=== PATIENT | male | born 1975 | race Caucasian/White ===

== ENCOUNTER 2017-03-13 15:33 | Emergency (ER) | payer SELFPAY ==
[~2017-03-13] VITALS: Ht 167.6 cm; Wt 77.0 kg
[2017-03-13] MEDS ORDERED: PROCHLORPERAZINE MALEATE 10MG TABLET PO ONE (16:15)
[2017-03-13 16:39] LABS: BASOPHILS % 0.5 % (0.0-2.0); EOSINOPHILS % 4.4 % (0.0-5.0); HEMOGLOBIN. 10.5 g/dL (14.0-18.0); LYMPHOCYTES % 9.8 % (20.0-50.0); MEAN CORPUSCULAR VOLUME 82.9 fL (80.0-94.0); MEAN PLATELET VOLUME 8.3 fl (7.4-10.4); MONOCYTES % 10.1 % (2.0-8.0); NEUTROPHILS % 75.2 % (40.0-76.0); PLATELET 310 x1000/uL (130-400); RED BLOOD CELL COUNT 3.61 mill/uL (4.7-6.1); RED CELL DISTRIBUTION WIDTH 13.5 % (11.6-14.6)
[2017-03-13 16:45] LABS: PROTHROMBIN TIME 10.7 sec
[2017-03-13] MEDS ORDERED: DIPHENHYDRAMINE 50MG/ML VIAL IV ONE (16:45)
[2017-03-13 16:55] LABS: CARBON DIOXIDE 27 mEq/L (21-32); CHLORIDE 91 mEq/L (98-107); TROPONIN I 0.03 ng/mL (0.00-0.04)
[2017-03-13] MEDS ORDERED: PROCHLORPERAZINE 10MG/2ML VIAL IV ONE (17:00)
[2017-03-13] MEDS ORDERED: SODIUM CHLORIDE 0.9% 1,000 ML IV ONE (19:53)
[2017-03-13] MEDS ORDERED: POTASSIUM CHLORIDE 10MEQ TABLET SR PO STA (20:00)
[2017-03-13 20:24] LABS: CLARITY URINE CLEAR (CLEAR); COLOR URINE YELLOW (YELLOW); GLUCOSE URINE NEGATIVE (NEGATIVE); KETONES URINE NEGATIVE (NEGATIVE); LEUKOCYTE ESTERASE URINE NEGATIVE (NEGATIVE); NITRITE URINE NEGATIVE (NEGATIVE); OCCULT BLOOD URINE NEGATIVE (NEGATIVE); PROTEIN URINE 1+ (NEGATIVE); SPECIFIC GRAVITY URINE 1.006 (1.005-1.030); UROBILINOGEN URINE 0.2 E.U./dL (0.2-1.0)
[2017-03-13 21:30] VITALS: BP 156/99
== END 2017-03-13 22:30 | disposition home or self-care (01) ==
LOC: ER 15:37
DX: R00.2 Palpitations (principal); E87.1 Hypo-osmolality and hyponatremia; E87.6 Hypokalemia; R51 Headache
CPT/HCPCS: 36415; 80053; 81001; 83880; 84484; 85025; 85610; 93005; 96361; 96374; 96375; 99285; J0780; J1200; J7030; Z7610

== ENCOUNTER 2018-08-21 16:35 | Inpatient (IN) | payer MEDICAID, OTHER ==
[~2018-08-21] VITALS: Ht 160 cm; Wt 69.9 kg
[~2018-08-21 16:35] MED LIST: ATOR20TA PO; HYDR-4135 PO; SEVE800T8 PO; SODI650T PO
[2018-08-21 23:41] LABS: BASOPHILS % 0.5 % (0.0-2.0); CHLORIDE 94 mEq/L (98-107); EOSINOPHILS % 0.1 % (0.0-5.0); LYMPHOCYTES % 8.1 % (20.0-50.0); MEAN CORPUSCULAR HEMOGLOBIN 27.7 pg (28.0-32.0); MEAN CORPUSCULAR VOLUME 81.3 fL (80.0-94.0); NEUTROPHILS % 81.3 % (40.0-76.0); PLATELET 293 x1000/uL (130-400); RED BLOOD CELL COUNT 2.33 mill/uL (4.7-6.1); RED CELL DISTRIBUTION WIDTH 16.8 % (11.6-14.6)
[2018-08-21 23:45] LABS: ETHANOL BLOOD < 10 mg/dL
[2018-08-21 23:48] LABS: HEMOGLOBIN. 6.5 g/dL (14.0-18.0)
[2018-08-22 08:19] LABS: *AMPHETAMINES SCREEN URINE NEGATIVE (NEGATIVE)
[2018-08-22 08:20] LABS: *BARBITURATES SCREEN URINE NEGATIVE (NEGATIVE); *COCAINE SCREEN URINE NEGATIVE (NEGATIVE); CANNABINOID URINE SCREEN NEGATIVE (NEGATIVE); METHADONE URINE SCREEN NEGATIVE (NEGATIVE); OPIATES URINE SCREEN NEGATIVE (NEGATIVE); PHENCYCLIDINE URINE SCREEN NEGATIVE (NEGATIVE)
[2018-08-22] MEDS ORDERED: ONDANSETRON HCL 4MG/2ML INJ IV PRN (08:30)
[2018-08-22] MEDS ORDERED: MAGNESIUM/ALUMINUM HYDROXIDE/SIMETHICONE 30ML UDC PO PRN (08:30)
[2018-08-22] MEDS ORDERED: LORAZEPAM 2MG/ML CPJ IV PRN (08:30)
[2018-08-22] MEDS ORDERED: GUAIFENESIN 200MG/10ML SUGAR FREE UDC PO PRN (08:30)
[2018-08-22] MEDS ORDERED: IPRATROPIUM/ALBUTEROL 0.5-3(2.5)MG/3ML NEB INH PRN (08:30)
[2018-08-22] MEDS ORDERED: DOCUSATE SODIUM 100MG CAPSULE PO PRN (08:30)
[2018-08-22] MEDS ORDERED: HYDROCODONE/ACETAMINOPHEN 5/325MG TABLET PO PRN (08:30)
[2018-08-22] MEDS ORDERED: DIPHENHYDRAMINE 50MG/ML VIAL IV PRN (08:30)
[2018-08-22] MEDS ORDERED: NA PHOS,M-B/NA PHOS,DI-BA ENEMA 118ML PR PRN (08:30)
[2018-08-22 08:31] LABS: *BENZODIAZEPINES SCREEN URINE NEGATIVE (NEGATIVE)
[2018-08-22] MEDS: MORPHINE SULFATE 4 MG/ML CPJ (NOT FOR IM USE) IV PRN ×2 (09:18→14:41)
[2018-08-22 10:02] LABS: INR 1.2; PARTIAL THROMBOPLASTIN TIME 36.9 sec (23.4-31.0); PROTHROMBIN TIME 11.8 sec (9.1-11.1)
[2018-08-22 11:53] LABS: HEPATITIS B SURFACE ANTIGEN NEGATIVE
[2018-08-22 12:00] VITALS: BP 163/95
[2018-08-22] MEDS ORDERED: LORAZEPAM 0.5MG TABLET PO PRN (12:15)
[2018-08-22 12:23] LABS: HEPATITIS A AB IGM NEGATIVE (NEGATIVE)
[2018-08-22] MEDS ORDERED: AMLO10TA80 MT (12:29)
[2018-08-22 16:00] VITALS: BP 163/95
[2018-08-22] MEDS: SEVELAMER CARBONATE 800 MG TABLET PO SCH ×2 (16:19→19:21)
[2018-08-22] MEDS: SODIUM CHLORIDE 0.45% 1,000 ML IV SCH (16:20)
[2018-08-22] MEDS: FOLIC ACID/VITAMIN B COMP W-C TABLET PO SCH (16:23)
[2018-08-22 16:56] LABS: HEMATOCRIT 20.8 % (42.0-52.0); HEMOGLOBIN 6.9 g/dL (14.0-18.0)
[2018-08-22 17:21] LABS: CREATINE KINASE MB FRACTION 2.5 ng/mL (0.5-3.6)
[2018-08-22] MEDS ORDERED: SODIUM CHLORIDE 0.9% IV ONE (18:30)
[2018-08-22] MEDS ORDERED: DESMOPRESSIN ACETATE IV ONE (18:30)
[2018-08-22 19:15] VITALS: BP 154/84
[2018-08-22] MEDS ORDERED: INFLUENZA VIRUS VACCINE(AFLURIA) 0.5ML SYR IM ONE (20:00)
[2018-08-22] MEDS ORDERED: PNEUMOCOCCAL 23-VAL P-SAC VAC 0.5 ML IM ONE (20:00)
[2018-08-22] MEDS ORDERED: DESMOPRESSIN ACETATE IVPB 21 MCG in SODIUM CHLORIDE 0.9% 50 ML IV NR (20:30)
[2018-08-22 20:45] VITALS: BP 182/97
[2018-08-22] MEDS: EPOETIN ALFA 10000UNITS/ML VIAL SUBCUT SCH (20:48)
[2018-08-22] MEDS: ACETAMINOPHEN 325MG TABLET PO PRN (20:48)
[2018-08-22 21:00] VITALS: BP 186/96
[2018-08-22 21:26] VITALS: BP 192/102
[2018-08-22] MEDS: CLONIDINE 0.1MG TABLET PO PRN (21:27)
[2018-08-23] VITALS (8 sets, daily range): BP systolic 135–186; BP diastolic 86–104
[2018-08-23 00:31] LABS: HEMATOCRIT 21.9 % (42.0-52.0); HEMOGLOBIN 7.5 g/dL (14.0-18.0)
[2018-08-23 00:35] LABS: CREATINE KINASE 146 IU/L (39-308)
[2018-08-23 07:36] LABS: MEAN CORPUSCULAR VOLUME 82.3 fL (80.0-94.0); PLATELET 209 x1000/uL (130-400); RED BLOOD CELL COUNT 2.49 mill/uL (4.7-6.1); RED CELL DISTRIBUTION WIDTH 16.2 % (11.6-14.6)
[2018-08-23 07:50] LABS: CHLORIDE 99 mEq/L (98-107)
[2018-08-23 07:51] LABS: HEMATOCRIT. 20.5 % (42.0-52.0)
[2018-08-23 08:01] LABS: CREATINE KINASE MB FRACTION 1.7 ng/mL (0.5-3.6)
[2018-08-23 08:04] LABS: CREATINE KINASE 117 IU/L (39-308); LDL CHOLESTEROL 35 mg/dL (5-100)
[2018-08-23 08:05] LABS: HDL CHOLESTEROL 53 mg/dL (40-59)
[2018-08-23 08:07] LABS: T4 FREE 1.03 ng/dL (0.76-1.46)
[2018-08-23 08:51] LABS: PHOSPHORUS 8.2 mg/dL (2.5-4.9)
[2018-08-23 14:26] LABS: PLATELET ESTIMATE NORMAL
[2018-08-23] MEDS: FOLIC ACID/VITAMIN B COMP W-C TABLET PO SCH (15:16)
[2018-08-23] MEDS: SODIUM CHLORIDE 0.45% 1,000 ML IV SCH (15:16)
[2018-08-23] MEDS: SEVELAMER CARBONATE 800 MG TABLET PO SCH ×2 (15:16→18:18)
[2018-08-23 15:28] LABS: HEMATOCRIT 22.1 % (42.0-52.0); HEMOGLOBIN 7.5 g/dL (14.0-18.0)
[2018-08-24] MEDS: CLONIDINE 0.1MG TABLET PO PRN ×2 (01:29→21:28)
[2018-08-24 06:54] LABS: BASOPHILS % 0.2 % (0.0-2.0); EOSINOPHILS % 0.3 % (0.0-5.0); HEMATOCRIT. 23.8 % (42.0-52.0); LYMPHOCYTES % 7.7 % (20.0-50.0); MEAN CORPUSCULAR VOLUME 83.1 fL (80.0-94.0); MEAN PLATELET VOLUME 8.9 fl (7.4-10.4); MONOCYTES % 10.3 % (2.0-8.0); NEUTROPHILS % 81.5 % (40.0-76.0); PLATELET 224 x1000/uL (130-400); RED BLOOD CELL COUNT 2.87 mill/uL (4.7-6.1); RED CELL DISTRIBUTION WIDTH 16.5 % (11.6-14.6)
[2018-08-24 08:00] VITALS: BP 158/98
[2018-08-24] MEDS: SEVELAMER CARBONATE 800 MG TABLET PO SCH ×3 (08:10→18:10)
[2018-08-24] MEDS: FOLIC ACID/VITAMIN B COMP W-C TABLET PO SCH (09:04)
[2018-08-24] MEDS: SODIUM CHLORIDE 0.45% 1,000 ML IV SCH (09:06)
[2018-08-24] MEDS: LEVOFLOXACIN 500MG PREMIX 100 ML IV SCH ×2 (10:00→13:58)
[2018-08-24 10:11] LABS: HEMATOCRIT 23.1 % (42.0-52.0); HEMOGLOBIN 7.9 g/dL (14.0-18.0)
[2018-08-24 12:00] VITALS: BP 166/101
[2018-08-24 16:00] VITALS: BP 169/99
[2018-08-24 20:00] VITALS: BP 167/95
[2018-08-24] MEDS: EPOETIN ALFA 10000UNITS/ML VIAL SUBCUT SCH (21:23)
[2018-08-25] VITALS: BP 144/95
[2018-08-25 04:00] VITALS: BP 158/96
[2018-08-25 08:00] VITALS: BP 163/96
[2018-08-25] MEDS: FOLIC ACID/VITAMIN B COMP W-C TABLET PO SCH (09:09)
[2018-08-25] MEDS: SEVELAMER CARBONATE 800 MG TABLET PO SCH ×3 (09:09→17:47)
[2018-08-25 09:10] LABS: BASOPHILS % 0.4 % (0.0-2.0); EOSINOPHILS % 0.7 % (0.0-5.0); HEMATOCRIT. 24.8 % (42.0-52.0); HEMOGLOBIN. 8.2 g/dL (14.0-18.0); LYMPHOCYTES % 8.1 % (20.0-50.0); MEAN CORPUSCULAR HEMOGLOBIN 27.6 pg (28.0-32.0); MEAN CORPUSCULAR VOLUME 83.6 fL (80.0-94.0); MEAN PLATELET VOLUME 8.1 fl (7.4-10.4); MONOCYTES % 8.6 % (2.0-8.0); NEUTROPHILS % 82.2 % (40.0-76.0); PLATELET 247 x1000/uL (130-400); RED BLOOD CELL COUNT 2.97 mill/uL (4.7-6.1); RED CELL DISTRIBUTION WIDTH 16.6 % (11.6-14.6)
[2018-08-25 12:00] VITALS: BP 177/101
[2018-08-25] MEDS: CLONIDINE 0.1MG TABLET PO PRN (13:22)
[2018-08-25 16:00] VITALS: BP 162/96
[2018-08-25] MEDS: ACETAMINOPHEN 325MG TABLET PO PRN (19:54)
[2018-08-25 20:00] VITALS: BP 156/98
[2018-08-26] VITALS (7 sets, daily range): BP systolic 148–179; BP diastolic 95–101
[2018-08-26] MEDS: ACETAMINOPHEN 325MG TABLET PO PRN (07:17)
[2018-08-26 07:25] LABS: BASOPHILS % 0.3 % (0.0-2.0); EOSINOPHILS % 1.8 % (0.0-5.0); HEMATOCRIT. 23.5 % (42.0-52.0); HEMOGLOBIN. 7.9 g/dL (14.0-18.0); LYMPHOCYTES % 9.2 % (20.0-50.0); MEAN CORPUSCULAR HEMOGLOBIN 28.2 pg (28.0-32.0); MEAN CORPUSCULAR VOLUME 84.3 fL (80.0-94.0); MEAN PLATELET VOLUME 8.3 fl (7.4-10.4); MONOCYTES % 9.6 % (2.0-8.0); NEUTROPHILS % 79.1 % (40.0-76.0); PLATELET 255 x1000/uL (130-400); RED BLOOD CELL COUNT 2.79 mill/uL (4.7-6.1); RED CELL DISTRIBUTION WIDTH 16.6 % (11.6-14.6)
[2018-08-26] MEDS: LEVOFLOXACIN 250MG PREMIX 50 ML IV SCH (09:59)
[2018-08-26] MEDS: SEVELAMER CARBONATE 800 MG TABLET PO SCH ×3 (10:00→18:14)
[2018-08-26] MEDS: FOLIC ACID/VITAMIN B COMP W-C TABLET PO SCH (10:00)
[2018-08-26 11:37] LABS: INR 1.1; PARTIAL THROMBOPLASTIN TIME 34.6 sec (23.4-31.0)
[2018-08-26] MEDS: CLONIDINE 0.1MG TABLET PO PRN (22:34)
[2018-08-26] MEDS: EPOETIN ALFA 10000UNITS/ML VIAL SUBCUT SCH (22:36)
[2018-08-27] VITALS: BP 160/93
[2018-08-27 04:00] VITALS: BP 151/101
[2018-08-27] MEDS: CLONIDINE 0.1MG TABLET PO PRN ×2 (06:28→20:15)
[2018-08-27 08:00] VITALS: BP 161/94
[2018-08-27] MEDS: SEVELAMER CARBONATE 800 MG TABLET PO SCH ×3 (08:10→17:57)
[2018-08-27 08:19] LABS: BASOPHILS % 0.8 % (0.0-2.0); EOSINOPHILS % 2.4 % (0.0-5.0); HEMATOCRIT. 23.3 % (42.0-52.0); HEMOGLOBIN. 7.9 g/dL (14.0-18.0); LYMPHOCYTES % 10.7 % (20.0-50.0); MEAN CORPUSCULAR HEMOGLOBIN 28.3 pg (28.0-32.0); MEAN CORPUSCULAR VOLUME 83.2 fL (80.0-94.0); MONOCYTES % 10.5 % (2.0-8.0); NEUTROPHILS % 75.6 % (40.0-76.0); PLATELET 274 x1000/uL (130-400); RED BLOOD CELL COUNT 2.81 mill/uL (4.7-6.1); RED CELL DISTRIBUTION WIDTH 16.6 % (11.6-14.6)
[2018-08-27] MEDS: FOLIC ACID/VITAMIN B COMP W-C TABLET PO SCH (11:59)
[2018-08-27 12:00] VITALS: BP 158/102
[2018-08-27 16:00] VITALS: BP 174/110
[2018-08-27 20:04] VITALS: BP 177/110
[2018-08-27] MEDS: ACETAMINOPHEN 325MG TABLET PO PRN (20:16)
[2018-08-28] VITALS: BP 155/96
[2018-08-28 04:00] VITALS: BP 172/100
[2018-08-28] MEDS: CLONIDINE 0.1MG TABLET PO PRN (06:16)
[2018-08-28 08:00] VITALS: BP 161/106
[2018-08-28 08:39] LABS: BASOPHILS % 0.6 % (0.0-2.0); EOSINOPHILS % 3.3 % (0.0-5.0); HEMATOCRIT. 24.4 % (42.0-52.0); HEMOGLOBIN. 8.1 g/dL (14.0-18.0); MEAN CORPUSCULAR HEMOGLOBIN 27.5 pg (28.0-32.0); MEAN CORPUSCULAR VOLUME 83.3 fL (80.0-94.0); MONOCYTES % 9.3 % (2.0-8.0); NEUTROPHILS % 76.8 % (40.0-76.0); PLATELET 268 x1000/uL (130-400); RED BLOOD CELL COUNT 2.93 mill/uL (4.7-6.1); RED CELL DISTRIBUTION WIDTH 16.4 % (11.6-14.6)
[2018-08-28] MEDS: SEVELAMER CARBONATE 800 MG TABLET PO SCH ×3 (08:48→18:16)
[2018-08-28] MEDS: LOSARTAN POTASSIUM 50 MG TABLET PO SCH ×2 (08:48→09:00)
[2018-08-28] MEDS: FOLIC ACID/VITAMIN B COMP W-C TABLET PO SCH (08:48)
[2018-08-28] MEDS: LEVOFLOXACIN 250MG PREMIX 50 ML IV SCH (09:27)
[2018-08-28 12:00] VITALS: BP 151/96
[2018-08-28 16:00] VITALS: BP 138/98
[2018-08-28] MEDS: ACETAMINOPHEN 325MG TABLET PO PRN (18:15)
[2018-08-28 20:00] VITALS: BP 150/106
[2018-08-28] MEDS: CLONIDINE 0.2MG TABLET PO PRN (23:41)
[2018-08-29] VITALS: BP 122/112
[2018-08-29 04:00] VITALS: BP 146/98
[2018-08-29 07:35] LABS: HEMATOCRIT. 24.7 % (42.0-52.0); MEAN CORPUSCULAR HEMOGLOBIN 27.2 pg (28.0-32.0); MEAN CORPUSCULAR VOLUME 83.5 fL (80.0-94.0); PLATELET 300 x1000/uL (130-400); RED BLOOD CELL COUNT 2.96 mill/uL (4.7-6.1); RED CELL DISTRIBUTION WIDTH 16.5 % (11.6-14.6)
[2018-08-29] MEDS: LOSARTAN POTASSIUM 50 MG TABLET PO SCH (08:42)
[2018-08-29] MEDS: FOLIC ACID/VITAMIN B COMP W-C TABLET PO SCH (08:42)
[2018-08-29] MEDS: SEVELAMER CARBONATE 800 MG TABLET PO SCH ×4 (08:42→17:51)
[2018-08-29] MEDS: ACETAMINOPHEN 325MG TABLET PO PRN (08:51)
[2018-08-29 12:00] VITALS: BP 140/91
[2018-08-29 13:47] LABS: PLATELET ESTIMATE NORMAL
[2018-08-29] MEDS ORDERED: HEPARIN SODIUM 1,000 UNIT/1ML VIAL IV NR (15:45)
[2018-08-29 16:00] VITALS: BP 162/99
[2018-08-29] MEDS: CEFEPIME 1,000 MG in DEXTROSE 5% WATER 50 ML IV SCH ×2 (17:00→22:09)
[2018-08-29] MEDS: VANCOMYCIN 1500MG in DEXTROSE 5% WATER 250ML IV NR ×2 (17:43→22:10)
[2018-08-29] MEDS: CLONIDINE 0.2MG TABLET PO PRN (18:41)
[2018-08-29 20:00] VITALS: BP 147/94
[2018-08-30 00:52] VITALS: BP 130/89
[2018-08-30] MEDS: ACETAMINOPHEN 325MG TABLET PO PRN ×2 (01:12→21:39)
[2018-08-30 04:00] VITALS: BP 125/84
[2018-08-30 06:59] LABS: BASOPHILS % 0.5 % (0.0-2.0); EOSINOPHILS % 1.2 % (0.0-5.0); HEMATOCRIT. 22.7 % (42.0-52.0); HEMOGLOBIN. 7.8 g/dL (14.0-18.0); LYMPHOCYTES % 7.5 % (20.0-50.0); MEAN CORPUSCULAR HEMOGLOBIN 28.6 pg (28.0-32.0); MEAN CORPUSCULAR VOLUME 83.3 fL (80.0-94.0); MEAN PLATELET VOLUME 7.9 fl (7.4-10.4); NEUTROPHILS % 77.8 % (40.0-76.0); PLATELET 297 x1000/uL (130-400); RED BLOOD CELL COUNT 2.73 mill/uL (4.7-6.1); RED CELL DISTRIBUTION WIDTH 16.6 % (11.6-14.6)
[2018-08-30] MEDS: SEVELAMER CARBONATE 800 MG TABLET PO SCH ×2 (08:30→13:30)
[2018-08-30] MEDS: FOLIC ACID/VITAMIN B COMP W-C TABLET PO SCH (08:49)
[2018-08-30] MEDS: LOSARTAN POTASSIUM 50 MG TABLET PO SCH (08:49)
[2018-08-30 13:32] VITALS: BP 155/102
[2018-08-30 15:36] VITALS: BP 147/87
[2018-08-30] MEDS ORDERED: VANCOMYCIN 750 MG PREMIX 150 ML IV SCH (18:00)
[2018-08-30 20:00] VITALS: BP 161/93
[2018-08-30] MEDS: EPOETIN ALFA 10000UNITS/ML VIAL SUBCUT SCH (21:30)
[2018-08-31 00:37] VITALS: BP 146/87
[2018-08-31 04:00] VITALS: BP 164/94
[2018-08-31] MEDS: ACETAMINOPHEN 325MG TABLET PO PRN ×2 (06:02→20:20)
[2018-08-31 07:47] LABS: BASOPHILS % 0.4 % (0.0-2.0); EOSINOPHILS % 2.5 % (0.0-5.0); HEMATOCRIT. 22.1 % (42.0-52.0); HEMOGLOBIN. 7.3 g/dL (14.0-18.0); LYMPHOCYTES % 9.3 % (20.0-50.0); MEAN CORPUSCULAR HEMOGLOBIN 27.3 pg (28.0-32.0); MEAN CORPUSCULAR VOLUME 82.6 fL (80.0-94.0); MEAN PLATELET VOLUME 7.6 fl (7.4-10.4); MONOCYTES % 11.8 % (2.0-8.0); PLATELET 338 x1000/uL (130-400); RED BLOOD CELL COUNT 2.67 mill/uL (4.7-6.1); RED CELL DISTRIBUTION WIDTH 16.5 % (11.6-14.6)
[2018-08-31 08:00] VITALS: BP 141/95
[2018-08-31] MEDS: LOSARTAN POTASSIUM 50 MG TABLET PO SCH (09:00)
[2018-08-31] MEDS: SEVELAMER CARBONATE 800 MG TABLET PO SCH ×3 (09:23→17:58)
[2018-08-31] MEDS: FOLIC ACID/VITAMIN B COMP W-C TABLET PO SCH (09:23)
[2018-08-31 12:00] VITALS: BP 146/91
[2018-08-31 16:00] VITALS: BP 149/99
[2018-08-31] MEDS: CEFEPIME 1,000 MG in DEXTROSE 5% WATER 50 ML IV SCH (17:09)
[2018-08-31 20:00] VITALS: BP 168/110
[2018-08-31] MEDS: CLONIDINE 0.2MG TABLET PO PRN (20:19)
[2018-09-01] VITALS (9 sets, daily range): BP systolic 125–176; BP diastolic 85–111
[2018-09-01 06:48] LABS: PARTIAL THROMBOPLASTIN TIME 33.4 sec (23.4-31.0); PROTHROMBIN TIME 10.5 sec (9.1-11.1)
[2018-09-01 07:08] LABS: BASOPHILS % 0.7 % (0.0-2.0); EOSINOPHILS % 3.6 % (0.0-5.0); MEAN CORPUSCULAR VOLUME 81.5 fL (80.0-94.0); MEAN PLATELET VOLUME 7.6 fl (7.4-10.4); MONOCYTES % 11.7 % (2.0-8.0); PLATELET 360 x1000/uL (130-400); RED BLOOD CELL COUNT 2.57 mill/uL (4.7-6.1); RED CELL DISTRIBUTION WIDTH 16.4 % (11.6-14.6)
[2018-09-01 07:55] LABS: HEMOGLOBIN. 6.9 g/dL (14.0-18.0)
[2018-09-01] MEDS: LOSARTAN POTASSIUM 50 MG TABLET PO SCH (08:35)
[2018-09-01] MEDS: FOLIC ACID/VITAMIN B COMP W-C TABLET PO SCH (08:35)
[2018-09-01] MEDS: SEVELAMER CARBONATE 800 MG TABLET PO SCH ×3 (08:35→18:10)
[2018-09-01 10:11] LABS: BASOPHILS % 0.6 % (0.0-2.0); EOSINOPHILS % 3.4 % (0.0-5.0); HEMATOCRIT. 23.6 % (42.0-52.0); HEMOGLOBIN. 7.8 g/dL (14.0-18.0); LYMPHOCYTES % 10.8 % (20.0-50.0); MEAN CORPUSCULAR HEMOGLOBIN 27.2 pg (28.0-32.0); MEAN CORPUSCULAR VOLUME 82.2 fL (80.0-94.0); MEAN PLATELET VOLUME 7.5 fl (7.4-10.4); MONOCYTES % 8.3 % (2.0-8.0); NEUTROPHILS % 76.9 % (40.0-76.0); PLATELET 376 x1000/uL (130-400); RED BLOOD CELL COUNT 2.87 mill/uL (4.7-6.1); RED CELL DISTRIBUTION WIDTH 16.3 % (11.6-14.6)
[2018-09-01] MEDS: CEFEPIME 1,000 MG in DEXTROSE 5% WATER 50 ML IV SCH (17:44)
[2018-09-01] MEDS: ACETAMINOPHEN 325MG TABLET PO SCH (20:46)
[2018-09-01] MEDS: EPOETIN ALFA 10000UNITS/ML VIAL SUBCUT SCH (21:13)
[2018-09-01] MEDS: CLONIDINE 0.2MG TABLET PO PRN (21:13)
[2018-09-02] VITALS: BP 124/82
[2018-09-02] MEDS: SEVELAMER CARBONATE 800 MG TABLET PO SCH ×3 (00:11→18:28)
[2018-09-02 04:00] VITALS: BP 132/92
[2018-09-02 06:28] LABS: BASOPHILS % 0.8 % (0.0-2.0); EOSINOPHILS % 4.4 % (0.0-5.0); HEMATOCRIT. 24.7 % (42.0-52.0); HEMOGLOBIN. 8.4 g/dL (14.0-18.0); LYMPHOCYTES % 12.7 % (20.0-50.0); MEAN CORPUSCULAR VOLUME 82.7 fL (80.0-94.0); MEAN PLATELET VOLUME 7.2 fl (7.4-10.4); MONOCYTES % 12.3 % (2.0-8.0); NEUTROPHILS % 69.8 % (40.0-76.0); PLATELET 411 x1000/uL (130-400); RED BLOOD CELL COUNT 2.98 mill/uL (4.7-6.1); RED CELL DISTRIBUTION WIDTH 16.6 % (11.6-14.6)
[2018-09-02 08:00] VITALS: BP 140/94
[2018-09-02] MEDS: FOLIC ACID/VITAMIN B COMP W-C TABLET PO SCH (09:37)
[2018-09-02] MEDS: LOSARTAN POTASSIUM 50 MG TABLET PO SCH (09:37)
[2018-09-02] MEDS: ACETAMINOPHEN 325MG TABLET PO PRN ×2 (11:52→19:57)
[2018-09-02 12:00] VITALS: BP 130/79
[2018-09-02] MEDS ORDERED: VANCOMYCIN 750 MG PREMIX 150 ML IV SCH (15:00)
[2018-09-02 16:00] VITALS: BP 121/74
[2018-09-02] MEDS: CEFEPIME 1,000 MG in DEXTROSE 5% WATER 50 ML IV SCH (17:26)
[2018-09-02 20:00] VITALS: BP 138/72
[2018-09-03] VITALS (7 sets, daily range): BP systolic 139–172; BP diastolic 85–99
[2018-09-03] MEDS: ACETAMINOPHEN 325MG TABLET PO SCH (00:38)
[2018-09-03 06:58] LABS: BASOPHILS % 0.8 % (0.0-2.0); EOSINOPHILS % 3.9 % (0.0-5.0); HEMOGLOBIN. 8.8 g/dL (14.0-18.0); LYMPHOCYTES % 14.6 % (20.0-50.0); MEAN CORPUSCULAR HEMOGLOBIN 27.2 pg (28.0-32.0); MEAN CORPUSCULAR VOLUME 83.2 fL (80.0-94.0); MEAN PLATELET VOLUME 7.3 fl (7.4-10.4); NEUTROPHILS % 68.7 % (40.0-76.0); PLATELET 491 x1000/uL (130-400); RED BLOOD CELL COUNT 3.25 mill/uL (4.7-6.1); RED CELL DISTRIBUTION WIDTH 16.9 % (11.6-14.6)
[2018-09-03] MEDS: LOSARTAN POTASSIUM 50 MG TABLET PO SCH (09:00)
[2018-09-03] MEDS: FOLIC ACID/VITAMIN B COMP W-C TABLET PO SCH (09:21)
[2018-09-03] MEDS: SEVELAMER CARBONATE 800 MG TABLET PO SCH ×3 (09:29→19:12)
[2018-09-03] MEDS: CLONIDINE 0.2MG TABLET PO PRN (15:46)
[2018-09-03] MEDS: CEFEPIME 1,000 MG in DEXTROSE 5% WATER 50 ML IV SCH (17:12)
[2018-09-03] MEDS: EPOETIN ALFA 10000UNITS/ML VIAL SUBCUT SCH (21:22)
[2018-09-04 00:24] VITALS: BP 147/91
[2018-09-04 04:00] VITALS: BP 162/100
[2018-09-04] MEDS: CLONIDINE 0.2MG TABLET PO PRN (04:42)
[2018-09-04 06:20] LABS: BASOPHILS % 0.9 % (0.0-2.0); HEMATOCRIT. 25.7 % (42.0-52.0); HEMOGLOBIN. 8.4 g/dL (14.0-18.0); LYMPHOCYTES % 10.9 % (20.0-50.0); MEAN CORPUSCULAR HEMOGLOBIN 27.2 pg (28.0-32.0); MEAN CORPUSCULAR VOLUME 83.6 fL (80.0-94.0); MEAN PLATELET VOLUME 7.4 fl (7.4-10.4); MONOCYTES % 9.1 % (2.0-8.0); NEUTROPHILS % 75.1 % (40.0-76.0); PLATELET 490 x1000/uL (130-400); RED BLOOD CELL COUNT 3.08 mill/uL (4.7-6.1); RED CELL DISTRIBUTION WIDTH 17.2 % (11.6-14.6)
[2018-09-04 08:00] VITALS: BP 154/94
[2018-09-04] MEDS: FOLIC ACID/VITAMIN B COMP W-C TABLET PO SCH (09:17)
[2018-09-04] MEDS: LOSARTAN POTASSIUM 50 MG TABLET PO SCH (09:17)
[2018-09-04] MEDS: SEVELAMER CARBONATE 800 MG TABLET PO SCH ×3 (09:17→18:34)
[2018-09-04 12:00] VITALS: BP 155/84
[2018-09-04 16:00] VITALS: BP 151/89
[2018-09-04] MEDS: CEFEPIME 1,000 MG in DEXTROSE 5% WATER 50 ML IV SCH (18:34)
[2018-09-04] MEDS: ACETAMINOPHEN 325MG TABLET PO SCH (18:41)
[2018-09-04 20:00] VITALS: BP 158/93
[2018-09-05] VITALS (20 sets, daily range): BP systolic 145–202; BP diastolic 85–126
[2018-09-05 06:52] LABS: HEMOGLOBIN. 8.4 g/dL (14.0-18.0); MEAN CORPUSCULAR HEMOGLOBIN 27.4 pg (28.0-32.0); MEAN CORPUSCULAR VOLUME 84.4 fL (80.0-94.0); MEAN PLATELET VOLUME 7.1 fl (7.4-10.4); PLATELET 638 x1000/uL (130-400); RED BLOOD CELL COUNT 3.08 mill/uL (4.7-6.1); RED CELL DISTRIBUTION WIDTH 17.4 % (11.6-14.6)
[2018-09-05 07:01] LABS: PARTIAL THROMBOPLASTIN TIME 29.8 sec (23.4-31.0); PROTHROMBIN TIME 10.4 sec (9.1-11.1)
[2018-09-05] MEDS ORDERED: SODIUM BICARBONATE 4% (2.4MEQ) 5ML VIAL IV ONE (08:00)
[2018-09-05] MEDS ORDERED: LIDOCAINE HCL 1% 20ML VIAL (Pyxis) INJ ONE (08:00)
[2018-09-05] MEDS ORDERED: HEPARIN 1000 UNITS/ML 10ML ONE (08:00)
[2018-09-05] MEDS ORDERED: FENTANYL CITRATE/PF 50MCG/ML 2ML VIAL ONE (08:21)
[2018-09-05] MEDS ORDERED: FENTANYL CITRATE/PF 50MCG/ML 2ML VIAL IV ONE (08:45)
[2018-09-05] MEDS: SEVELAMER CARBONATE 800 MG TABLET PO SCH ×4 (09:29→18:21)
[2018-09-05] MEDS: FOLIC ACID/VITAMIN B COMP W-C TABLET PO SCH (09:29)
[2018-09-05] MEDS: LOSARTAN POTASSIUM 50 MG TABLET PO SCH (09:29)
[2018-09-05 10:05] LABS: PLATELET ESTIMATE INCREASED
[2018-09-05 13:06] LABS: HIV SCREEN 4G Non Reactive (Non Reactive)
[2018-09-05] MEDS: CEFEPIME 1,000 MG in DEXTROSE 5% WATER 50 ML IV SCH (18:21)
[2018-09-05] MEDS: ACETAMINOPHEN 325MG TABLET PO SCH (18:27)
[2018-09-05] MEDS: CLONIDINE 0.2MG TABLET PO PRN (18:42)
[2018-09-06] VITALS: BP_SYST 135; BP_SYST 138; BP_DIAS 66; BP_DIAS 87
[2018-09-06 04:00] VITALS: BP 161/101
[2018-09-06] MEDS: CLONIDINE 0.2MG TABLET PO PRN (05:06)
[2018-09-06 08:00] VITALS: BP 152/93
[2018-09-06] MEDS: SEVELAMER CARBONATE 800 MG TABLET PO SCH (08:48)
[2018-09-06] MEDS: LOSARTAN POTASSIUM 50 MG TABLET PO SCH (08:48)
[2018-09-06] MEDS: FOLIC ACID/VITAMIN B COMP W-C TABLET PO SCH (08:48)
[2018-09-06 11:18] VITALS: BP 152/93
[2018-09-06 13:06] LABS: ANTI-MYELOPEROXIDASE AB < 9.0 U/mL (0.0-9.0); ANTI-PROTEINASE 3 ABS < 3.5 U/mL (0.0-3.5)
[2018-09-06] MEDS ORDERED: HYDRALAZINE HCL 25MG TABLET PO SCH (14:00)
[2018-09-07 13:06] LABS: ANTI-NUCLEAR ANTIBODIES DIRECT Negative (Negative); ATYPICAL P-ANCA <1:20 titer (Neg:<1:20); CYTOPLASMIC C-ANCA <1:20 titer (Neg:<1:20); PERINUCLEAR P-ANCA <1:20 titer (Neg:<1:20)
== END 2018-09-06 12:16 | disposition home or self-care (01) | DRG 720 ==
LOC: ER 21:07 → 7WST 08-22 01:38 → EDBEDREQ 08-22 01:46 → EDBEDREQDT 08-22 01:46 → EDBEDREQTM 08-22 01:46 → ENRESERV 08-22 10:03
PROVIDERS: ADMIT Internal Medicine; ATTEND Internal Medicine
PROC: 30233N1 Transfusion of Nonautologous Red Blood Cells into Peripheral Vein, Percutaneous Approach (ICD-10-PCS; principal; 2018-08-22)
PROC: 5A1D70Z Performance of Urinary Filtration, Intermittent, Less than 6 Hours Per Day (ICD-10-PCS; 2018-08-22)
PROC: 02H633Z Insertion of Infusion Device into Right Atrium, Percutaneous Approach (ICD-10-PCS; 2018-08-22)
PROC: B244ZZZ Ultrasonography of Right Heart (ICD-10-PCS; 2018-08-22)
PROC: 5A1D70Z Performance of Urinary Filtration, Intermittent, Less than 6 Hours Per Day (ICD-10-PCS; 2018-08-23)
PROC: 5A1D70Z Performance of Urinary Filtration, Intermittent, Less than 6 Hours Per Day (ICD-10-PCS; 2018-08-24)
PROC: 0W993ZX Drainage of Right Pleural Cavity, Percutaneous Approach, Diagnostic (ICD-10-PCS; 2018-08-26)
PROC: 0W9B3ZX Drainage of Left Pleural Cavity, Percutaneous Approach, Diagnostic (ICD-10-PCS; 2018-08-27)
PROC: 5A1D70Z Performance of Urinary Filtration, Intermittent, Less than 6 Hours Per Day (ICD-10-PCS; 2018-08-29)
PROC: 5A1D70Z Performance of Urinary Filtration, Intermittent, Less than 6 Hours Per Day (ICD-10-PCS; 2018-08-30)
PROC: 5A1D70Z Performance of Urinary Filtration, Intermittent, Less than 6 Hours Per Day (ICD-10-PCS; 2018-09-02)
PROC: 5A1D70Z Performance of Urinary Filtration, Intermittent, Less than 6 Hours Per Day (ICD-10-PCS; 2018-09-04)
PROC: 05PY33Z Removal of Infusion Device from Upper Vein, Percutaneous Approach (ICD-10-PCS; 2018-09-05)
PROC: 0JH63XZ Insertion of Tunneled Vascular Access Device into Chest Subcutaneous Tissue and Fascia, Percutaneous Approach (ICD-10-PCS; 2018-09-05)
PROC: 02H633Z Insertion of Infusion Device into Right Atrium, Percutaneous Approach (ICD-10-PCS; 2018-09-05)
PROC: B2141ZZ Fluoroscopy of Right Heart using Low Osmolar Contrast (ICD-10-PCS; 2018-09-05)
PROC: 5A1D70Z Performance of Urinary Filtration, Intermittent, Less than 6 Hours Per Day (ICD-10-PCS; 2018-09-06)
DX: A41.9 Sepsis, unspecified organism (principal); J96.00 Acute respiratory failure, unspecified whether with hypoxia or hypercapnia; J90 Pleural effusion, not elsewhere classified; J18.9 Pneumonia, unspecified organism; I12.0 Hypertensive chronic kidney disease with stage 5 chronic kidney disease or end stage renal disease; N17.9 Acute kidney failure, unspecified; I27.20 Pulmonary hypertension, unspecified; N18.6 End stage renal disease; E87.1 Hypo-osmolality and hyponatremia; I07.1 Rheumatic tricuspid insufficiency; E87.70 Fluid overload, unspecified; R07.9 Chest pain, unspecified; D64.9 Anemia, unspecified; E78.5 Hyperlipidemia, unspecified; Z99.2 Dependence on renal dialysis
CPT/HCPCS: 32555; 36415; 36430; 36558; 36569; 36589; 71045; 76770; 76937; 77001; 80048; 80061; 80202; 80305; 82040; 82550; 82553; 82962; 83036; 83520; 83615; 83735; 83880; 84100; 84439; 84443; 84484; 85014; 85018; 85379; 86038; 86256; 86705; 86709; 86803; 86850; 86900; 86920; 87340; 87389; 87899; 88108; 88312; 90686; 90732; 93005; 93306; 93970; 94640; 99291; C1750; C1752; C1769; G0482; J0692; J0885; J1644; J1956; J2270; J2405; J2597; J3010; J3370; J3490; J7040; J7050; J7060; J7620; P9016